=== PATIENT | female | born 1990 | race Caucasian/White ===

== ENCOUNTER → 2019-06-21 | Outpatient (CLI) | payer OTHER | END | disposition home or self-care (01) | LOC: RADPV 11:12 | PROVIDERS: ATTEND Legal Medicine | DX: M41.84 Other forms of scoliosis, thoracic region (principal); M54.9 Dorsalgia, unspecified | CPT/HCPCS: 72072 ==

== ENCOUNTER → 2020-07-12 | Outpatient (CLI) | payer OTHER ==
[~2020-07-12] MED LIST: IOVERSOL 350 MG/ML 100 ML VIAL ONE; SODIUM CHLORIDE 0.9% 100 ML ONE
== END | disposition home or self-care (01) ==
LOC: RADMN 08:41
PROVIDERS: ATTEND Legal Medicine
DX: N32.89 Other specified disorders of bladder (principal); R19.5 Other fecal abnormalities; R10.13 Epigastric pain
CPT/HCPCS: 74177; J7050; Q9967

== ENCOUNTER 2021-07-30 07:44 | Emergency (ER) | payer OTHER ==
[~2021-07-30] VITALS: Ht 157.5 cm; Wt 56.8 kg
[2021-07-30 08:09] VITALS: BP 114/75
== END 2021-07-30 08:58 | disposition home or self-care (01) ==
LOC: EMS 07:48
DX: F41.9 Anxiety disorder, unspecified (principal); Z77.120 Contact with and (suspected) exposure to mold (toxic); F31.9 Bipolar disorder, unspecified; F12.90 Cannabis use, unspecified, uncomplicated
CPT/HCPCS: 99281; Z7502

== ENCOUNTER → 2021-10-15 | Outpatient (CLI) | payer OTHER | END | disposition home or self-care (01) | LOC: RADMN 12:18 | PROVIDERS: ATTEND Legal Medicine | DX: M51.24 Other intervertebral disc displacement, thoracic region (principal); M50.30 Other cervical disc degeneration, unspecified cervical region; M51.37 Other intervertebral disc degeneration, lumbosacral region; M48.07 Spinal stenosis, lumbosacral region; M79.7 Fibromyalgia; G62.9 Polyneuropathy, unspecified | CPT/HCPCS: 72141; 72146; 72148 ==

== ENCOUNTER → 2021-11-28 | Outpatient (CLI) | payer OTHER ==
[~2021-11-28] MED LIST changes: +GADOTERATE MEGLUMINE 10 MMOL/20 ML VIAL IVP ONE; -IOVERSOL 350 MG/ML 100 ML VIAL ONE; -SODIUM CHLORIDE 0.9% 100 ML ONE
== END | disposition home or self-care (01) ==
LOC: RADMN 08:34
PROVIDERS: ATTEND Legal Medicine
DX: M51.24 Other intervertebral disc displacement, thoracic region (principal); S24.15 Other incomplete lesions of thoracic spinal cord; X58.XXXA Exposure to other specified factors, initial encounter; Y93.89 Activity, other specified; Y92.89 Other specified places as the place of occurrence of the external cause; Y99.8 Other external cause status
CPT/HCPCS: 72157; A9575

== ENCOUNTER 2022-02-03 20:55 | Emergency (ER) | payer OTHER ==
[~2022-02-03] VITALS: Ht 157.5 cm; Wt 55.0 kg
[2022-02-03] MEDS ORDERED: BUSP15 PO (21:19)
[2022-02-03] MEDS ORDERED: LAMO100 PO (21:19)
[2022-02-03 21:51] LABS: BASOPHILS % (AUTO) 0.6 % (0.0-2.0); EOSINOPHILS % (AUTO) 6.9 % (1.0-6.0); HEMATOCRIT 33.6 % (36-46); HEMOGLOBIN 11.7 g/dL (12.0-16.0); LYMPHOCYTES # (AUTO) 1.4 K/uL (1.0-4.8); LYMPHOCYTES % (AUTO) 17.6 % (22.0-44.0); MEAN CORPUSCULAR HEMOGLOBIN 32.6 pg (26.0-34.0); MEAN CORPUSCULAR VOLUME 93 fL (80-100); MONOCYTES # (AUTO) 0.4 K/uL (0.1-1.0); MONOCYTES % (AUTO) 5.2 % (2.0-9.0); NEUTROPHILS # (AUTO) 5.6 K/uL (1.8-7.7); NEUTROPHILS % (AUTO) 69.7 % (40.0-70.0); PLATELET COUNT (AUTO) 238 K/uL (150-450); RED CELL DISTRIBUTION WIDTH 12.3 % (11.5-14.5)
[2022-02-03 22:00] LABS: ANION GAP 0 mmol/L (8-16); CALCIUM, TOTAL 8.1 mg/dL (8.8-10.5); CARBON DIOXIDE 30 mmol/L (22-29); CHLORIDE 103 mmol/L (98-107); CREATININE 0.74 mg/dL (0.60-1.30); GLUCOSE,RANDOM 91 mg/dL (70-110); POTASSIUM 3.3 mmol/L (3.5-5.1); SODIUM SERUM 133 mmol/L (136-145); UREA NITROGEN, BLOOD 12 mg/dL (7-18)
[2022-02-03 22:01] LABS: GLOMERULAR FILTR. RATE CALC > 60 mL/min (>60)
[2022-02-03 22:09] LABS: LACTIC ACID 0.5 mmol/L (0.4-2.0)
[2022-02-03 22:15] LABS: ALANINE AMINOTRANSFERASE 20 U/L (12-78); ALBUMIN 3.1 g/dL (3.4-5.0); ALKALINE PHOSPHATASE 33 U/L (46-116); AMYLASE 38 U/L (25-115); ASPARTATE AMINOTRANSFERASE 14 U/L (15-37); BILIRUBIN,TOTAL 0.7 mg/dL (0.1-1.0); HCG,QUANTITATIVE < 1 mIU/mL (0-6); LIPASE 103 U/L (73-393)
[2022-02-03] MEDS ORDERED: 0.9% SODIUM CHLORIDE 10 ML SYRINGE IVP PRN (22:15)
[2022-02-03 22:45] LABS: COVID AG,FIA SOURCE NASOPHARYNGEAL
[2022-02-03] MEDS ORDERED: KETOROLAC TROMETHAMINE 30 MG/ML VIAL IVP ONE (22:45)
[2022-02-03] MEDS ORDERED: SODIUM CHLORIDE 0.9% 1,000 ML IV ONE (22:45)
[2022-02-03] MEDS ORDERED: MORPHINE SULFATE 2 MG/ML SYRINGE IVP ONE (22:45)
[2022-02-03] MEDS ORDERED: KETOROLAC TROMETHAMINE 15 MG/ML VIAL IVP ONE (22:45)
[2022-02-03] MEDS ORDERED: IOHEXOL 350 MG/ML 100 ML VIAL ONE (22:47)
[2022-02-03] MEDS ORDERED: SODIUM CHLORIDE 0.9% 100 ML ONE (22:47)
[2022-02-03 22:54] LABS: APPEARANCE,URINE CLEAR (CLEAR); BILIRUBIN,URINE NEGATIVE (NEGATIVE); GLUCOSE, URINE (UA) NEGATIVE (NEGATIVE); KETONES,URINE NEGATIVE (NEGATIVE); LEUKOCYTE ESTERASE ,URINE NEGATIVE (NEGATIVE); NITRATE,URINE NEGATIVE (NEGATIVE); OCCULT BLOOD,URINE NEGATIVE (NEGATIVE); PH,URINE 6.5 (5.0-8.0); PROTEIN,URINE NEGATIVE (NEGATIVE); SPECIFIC GRAVITIY, URINE 1.005 (1.003-1.030); UROBILINOGEN,URINE <=1.0 mg/dL (<=1.0)
[2022-02-03] MEDS ORDERED: ONDANSETRON HCL 4 MG/2 ML VIAL IVP ONE (23:00)
[2022-02-03 23:20] LABS: B-TYPE NATRIURETIC PEPTIDE < 5 pg/mL (0-100)
[2022-02-03 23:44] LABS: CREATINE KINASE, TOTAL ONLY 76 U/L (26-192)
[2022-02-04] MEDS ORDERED: SODIUM PHOS/SODIUM BIPHOS 133 ML ENEMA PR ONE (00:30)
[2022-02-04] MEDS ORDERED: CLINDAMYCIN HCL 150 MG CAPSULE PO ONE (00:30)
[2022-02-04 02:24] VITALS: BP 126/72
== END 2022-02-04 03:00 | disposition short-term general hospital (02) ==
LOC: EMS 20:55
DX: L03.311 Cellulitis of abdominal wall (principal); Z20.822 Contact with and (suspected) exposure to COVID-19; F31.9 Bipolar disorder, unspecified; F41.9 Anxiety disorder, unspecified; F12.90 Cannabis use, unspecified, uncomplicated; R00.0 Tachycardia, unspecified; R10.30 Lower abdominal pain, unspecified; R10.2 Pelvic and perineal pain; Z88.0 Allergy status to penicillin; Z98.82 Breast implant status
CPT/HCPCS: 99285; 71260; 96374; 71045; 96375; 96361; 87426; 80053; 81003; 82150; 82550; 83605; 83690; 83880; 84484; 84702; 85025; 87040; 36415; 74160; 93005; 84145; 72193; J1885; J2270; J2405; Q9967; J7030; J7050